=== PATIENT | female | born 1960 | race Caucasian/White ===

== ENCOUNTER → 2016-06-17 | Outpatient (CLI) | payer MEDICAID, OTHER ==
[2016-06-17 09:16] LABS: ALT 31 U/L (9-52); AST 20 U/L (14-36)
== END | disposition home or self-care (01) ==
LOC: LABWHC1 08:33
PROVIDERS: ATTEND Dermatology Dermatopathology
DX: L13.0 Dermatitis herpetiformis (principal); Z79.899 Other long term (current) drug therapy
CPT/HCPCS: 36415; 84450; 84460

== ENCOUNTER → 2016-07-22 | Outpatient (CLI) | payer MEDICAID, OTHER ==
[2016-07-22 09:23] LABS: ALT 25 U/L (9-52); AST 25 U/L (14-36)
== END | disposition home or self-care (01) ==
LOC: LABWHC1 07:53
PROVIDERS: ATTEND Dermatology Dermatopathology
DX: L13.0 Dermatitis herpetiformis (principal); Z79.899 Other long term (current) drug therapy
CPT/HCPCS: 36415; 84450; 84460

== ENCOUNTER → 2017-08-15 | Outpatient (CLI) | payer MEDICAID, OTHER ==
[2017-08-15 07:41] LABS: Basophils # (A) 0.1 k/uL (0-0.2); Basophils % (A) 1 %; Eosinophils # (A) 0.3 k/uL (0-0.7); Eosinophils % (A) 5 %; HCT 36.3 % (34.0-46.0); HGB 11.7 gm/dL (11.4-16.0); Lymphocytes # (A) 1.5 k/uL (1.0-4.8); Lymphocytes % (A) 25 %; MCH 28.8 pg (25.0-35.0); MCHC 32.2 g/dL (31.0-37.0); MCV 89.6 fL (80.0-100.0); Mean Platelet Volume 7.5; Monocytes # (A) 0.4 k/uL (0-1.0); Monocytes % (A) 6 %; Neutrophils # (A) 3.6 k/uL (1.3-7.7); Neutrophils % (A) 60 %; Platelet Count 301 k/uL (150-450); RBC 4.06 m/uL (3.80-5.40); RDW 14.3 % (11.5-15.5)
[2017-08-15 07:57] LABS: ALT 24 U/L (9-52); AST 19 U/L (14-36); Albumin 4.1 g/dL (3.5-5.0); Alkaline Phosphatase 77 U/L (38-126); Anion Gap 13 mmol/L; Blood Urea Nitrogen 15 mg/dL (7-17); Calcium 9.4 mg/dL (8.4-10.2); Carbon Dioxide 23 mmol/L (22-30); Chloride 107 mmol/L (98-107); Cholesterol 232 mg/dL (<200); Glucose 91 mg/dL (74-99); HDL Cholesterol 51 mg/dL (40-60); LDL Cholesterol,Calculated 164 mg/dL (0-99); Potassium 4.3 mmol/L (3.5-5.1); Sodium 143 mmol/L (137-145); Total Bilirubin 0.6 mg/dL (0.2-1.3); Total Protein 6.9 g/dL (6.3-8.2); Triglycerides 86 mg/dL (<150)
[2017-08-15 08:13] LABS: T4, Free (Free Thyroxine) 0.97 ng/dL (0.78-2.19)
== END | disposition home or self-care (01) ==
LOC: LABWHC1 06:59
PROVIDERS: ATTEND Internal Medicine
DX: Z01.419 Encounter for gynecological examination (general) (routine) without abnormal findings (principal); Z13.29 Encounter for screening for other suspected endocrine disorder; Z13.220 Encounter for screening for lipoid disorders; Z13.228 Encounter for screening for other metabolic disorders
CPT/HCPCS: 36415; 80053; 80061; 83050; 84439; 84443; 85025

== ENCOUNTER → 2017-10-31 | Outpatient (CLI) | payer MEDICAID, OTHER ==
--- NOTE | 2017-10-31 08:14 | XR ---
Lumbar spine HISTORY: Right hip numbness, sciatic leg pain 3 views of the lumbar spine Lumbar vertebral bodies show preserved height, alignment, bone mineralization mildly reduced. Surgica l clips present in the right upper quadrant. There is a gentle spinal curvature. Loss of disc height present at the intervertebral levels. Possible transitional vertebral body at the lumbosacral junctio n. Vacuum phenomenon present at what is believed to be L4-5. Sclerosis present in the posterior eleme nts compatible with facet arthropathy. IMPRESSION: Degenerative disc disease, osteopenia, facet arthropathy. MRI may be of benefit.
== END | disposition home or self-care (01) ==
LOC: RADXRMAIN 06:43
PROVIDERS: ATTEND Internal Medicine
DX: M51.36 Other intervertebral disc degeneration, lumbar region (principal); M85.88 Other specified disorders of bone density and structure, other site; M46.96 Unspecified inflammatory spondylopathy, lumbar region
CPT/HCPCS: 72100

== ENCOUNTER → 2017-11-21 | Outpatient (CLI) | payer MEDICAID, OTHER ==
--- NOTE | 2017-11-21 16:59 | P.STRESS ---
- Stress Test Note Stress Test Results/Findings: Exam Performed: stress test Exam Date: 11/21/17 Reason for Exam: palp / htn Height: 5 ft 5 in Weight: 77.564 kg Protocol: zia Stage: 2 Duration of Exercise: 5:00 Resting Heart Rate: 78 Resting Blood Pressure: 129/84 Maximum Achieved Heart Rate: 160 Maximum Achieved Blood Pressure: 178/64 85% PMHR: 137 100% PMHR: 161 METS: 7.0 Technologist Comment: Stress Test Results/Findings: Baseline heart rate 78 beats a minute, Baseline blood pressure 129/84 mmHg. Baseline telemetry ECG shows normal sinus rhythm and nonspecific ST-T abnormalities with a subtle T-wave inversion in the lateral precordial leads consistent with a history of hypertension Patient excisable Zia protocol for 5 minutes achieving a peak 100 160 beats a minute. Normal blood pressure response to exercise. There was no definite ECG evidence for ischemia no arrhythmias noted Impression Reduced exercise capacity, low workload achieved No ECG evidence for ischemia or arrhythmias
--- NOTE | 2017-11-21 17:03 | ECHOF ---
Referral Reason:I10 Hypertension MEASUREMENTS -------- HEIGHT: 165.1 cm WEIGHT: 77.6 kg BP: IVSd: 1.2 cm (0.6 - 1.1) LVIDd: 3.6 cm (3.9 - 5.3) LVPWd: 1.1 cm (0.6 - 1.1) IVSs: 1.5 cm LVIDs: 3.4 cm LVPWs: 0.9 cm LA Diam: 3.0 cm (2.7 - 3.8) LAESV Index (A-L): 29.92 ml/m Ao Diam: 2.8 cm (2.0 - 3.7) LA Diam: 2.8 cm (2.7 - 3.8) AV Cusp: 1.6 cm (1.5 - 2.6) EPSS: 1.0 cm MV E Quan: 0.64 m/s MV DecT: 202 ms MV A Quan: 0.69 m/s MV E/A Ratio: 0.92 RAP: 5.00 mmHg RVSP: 18.20 mmHg MV EF SLOPE: 83.64 mm/s (70 - 150) MV EXCURSION: 14.38 mm (> 18.000) FINDINGS -------- Sinus rhythm. This was a technically adequate study. The left ventricular size is normal. There is mild concentric left ventricular hypertrophy. Overa ll left ventricular systolic function is low-normal with, an EF between 50 - 55 %. The right ventricle is normal in size. The left atrial size is normal. Normal LA size by volume 22+/-6 ml/m2. The aortic valve is trileaflet, and appears structurally normal. No aortic stenosis or regurgitation. Mild mitral regurgitation is present. Mild tricuspid regurgitation present. There is no evidence of pulmonary hypertension. The right v entricular systolic pressure, as measured by Doppler, is 18.20mmHg. There is no pulmonic regurgitation present. The aortic root size is normal. There is no pericardial effusion. CONCLUSIONS -------- 1. The left ventricular size is normal. 2. There is mild concentric left ventricular hypertrophy. 3. Overall left ventricular systolic function is low-normal with, an EF between 50 - 55 %. 4. The right ventricle is normal in size. 5. The left atrial size is normal. 6. Normal LA size by volume 22+/-6 ml/m2. 7. The aortic valve is trileaflet, and appears structurally normal. No aortic stenosis or regurgitati on. 8. Mild mitral regurgitation is present. 9. Mild tricuspid regurgitation present. 10. There is no evidence of pulmonary hypertension. 11. The right ventricular systolic pressure, as measured by Doppler, is 18.20mmHg. 12. There is no pulmonic regurgitation present. 13. The aortic root size is normal. 14. There is no pericardial effusion. SECURITY INCIDENT RESPONSE SPECIALIST: Cassie Metz RDCS
== END | disposition home or self-care (01) ==
LOC: RADNMMAIN 10:34
PROVIDERS: ATTEND Internal Medicine
DX: I08.1 Rheumatic disorders of both mitral and tricuspid valves (principal); I11.9 Hypertensive heart disease without heart failure
CPT/HCPCS: 93017; 93306

== ENCOUNTER 2018-02-15 07:10 | Day surgery (SDC) | payer MEDICAID, OTHER ==
[2018-02-09 12:01] VITALS: BMI 27.6
[~2018-02-15 07:10] MED LIST: LACTATED RINGERS 1,000 ML IV SCH
[2018-02-15 07:54] VITALS: RESP 16; TEMP 97.8
[2018-02-15] MEDS ORDERED: LIDOCAINE 1% 20 ML VIAL (10MG/ML) FOR IV START INTRADERMA ONE (07:56)
[2018-02-15] MEDS ORDERED: fentaNYL (PF) 50 MCG/ML 2 ML AMP ONE (08:29)
[2018-02-15] MEDS ORDERED: PROPOFOL 10 MG/ML 20 ML VIAL IV ONE (08:29)
[2018-02-15] MEDS ORDERED: LIDOCAINE 1% INJ 10MG/ML (20 ML MDV) ONE (08:29)
--- NOTE | 2018-02-15 08:55 | P.PCN ---
Date of Procedure: 02/15/18 Procedure(s) Performed: Brief history: Patient is a pleasant 57-year-old white female, scheduled for an elective upper endoscopy as well as colonoscopy as a part of evaluation of abdominal pain and chronic diarrhea. She has history of celiac disease diagnosed 5 years ago. She also has prior history of colon polyps Procedure performed: Esophagogastroduodenoscopy with biopsy Colonoscopy with biopsy Preoperative diagnosis: History of celiac disease Abdominal pain chronic diarrhea/history of colon polyps Anesthesia: MAC Procedure: After informed consent was obtained from the patient was brought into the endoscopy unit and IV sedation was administered by anesthesia under continuous monitoring. Initially upper endoscopy was done. The Olympus GF 160 video endoscope was inserted inserted into the mouth and esophagus intubated without any difficulty and was gradually advanced into the stomach and duodenum and carefully examined. The bulb and second part of the duodenum appeared normal. Random biopsies were done from the duodenum to evaluate for celiac disease. The scope was then withdrawn into the stomach adequately insufflated with air and upon careful examination the antrum had patchy areas of erythema and Biopsies were done from this area. The body, cardia and fundus appeared normal. The scope was then withdrawn into the esophagus. The GE junction was located at 40 cm to the incisors. It appeared regular with no erythema erosions or ulcerations. Rest of the esophagus appeared normal. Patient tolerated the procedure well. At this time the patient continued to remain sedation. Initial digital rectal examination was normal. Olympus CF 160 video colonoscope was then inserted into the rectum and gradually advanced to the cecum without any difficulty. Careful examination was performed as the scope was gradually being withdrawn. The prep was excellent. The cecum, ascending colon, transverse colon, descending colon, sigmoid colon and rectum appeared normal. There was a 5 limited polyp noted in the descending colon that was removed by cold biopsy. Retroflexion was performed in the rectum and small internal hemorrhoids were noted. Patient tolerated the procedure well. Impression: 1. Upper endoscopy revealed mild gastritis but no evidence of esophagitis or peptic ulcer disease 2. Colonoscopy revealed 5 mm descending colon polyp status post removal by biopsy and small internal Recommendations: Findings of this examination were discussed with the patient as well as her family. She was advised to follow with the biopsy results. She can continue with a strict gluten-free diet. If the biopsy of the colon polyp shows adenoma she can have a repeat colonoscopy in 5 years.
[2018-02-15 09:17] VITALS: BP 139/77; PULSE 67
== END 2018-02-15 09:32 | disposition home or self-care (01) ==
LOC: ORWHC2ENDO 07:10
PROVIDERS: ATTEND Internal Medicine Gastroenterology
DX: D12.4 Benign neoplasm of descending colon (principal); K29.50 Unspecified chronic gastritis without bleeding; I10 Essential (primary) hypertension; K64.8 Other hemorrhoids; K52.9 Noninfective gastroenteritis and colitis, unspecified; Z86.010 Personal history of colon polyps; Z88.0 Allergy status to penicillin; Z88.6 Allergy status to analgesic agent; Z91.048 Other nonmedicinal substance allergy status
CPT/HCPCS: 88305; 45380; 43239; J2001; J3010; J2704

== ENCOUNTER → 2018-03-01 | Outpatient (CLI) | payer MEDICAID, OTHER ==
[2018-03-01 15:49] LABS: Folate, Serum 11.9 ng/mL
== END | disposition home or self-care (01) ==
LOC: LABWHC1 07:59
PROVIDERS: ATTEND Internal Medicine
DX: K90.0 Celiac disease (principal)
CPT/HCPCS: 36415; 82607; 82746; 83516; 84443

== ENCOUNTER → 2018-04-16 | Outpatient (CLI) | payer MEDICAID, OTHER ==
--- NOTE | 2018-04-18 13:29 | MM ---
Reason for exam: screening (asymptomatic). Last mammogram was performed 4 years and 3 months ago. History: Patient is postmenopausal and history of other cancer. Family history of breast cancer in aunt at age 64 and breast cancer in sister at age 56. Physical Findings: A clinical breast exam by your physician is recommended on an annual basis and results should be correlated with mammographic findings. MG 3D Screening Mammo W/Cad Bilateral CC and MLO view(s) were taken. Prior study comparison: January 02, 2014, bilateral MG screening mammo w CAD. January 03, 2008, bilateral diagnostic digital mammog. The breast tissue is heterogeneously dense. This may lower the sensitivity of mammography. No significant changes when compared with prior studies. ASSESSMENT: Benign, BI-RAD 2 RECOMMENDATION: Routine screening mammogram of both breasts in 1 year.
== END | disposition home or self-care (01) ==
LOC: RADMAMWWP 07:38
PROVIDERS: ATTEND Internal Medicine
DX: Z12.31 Encounter for screening mammogram for malignant neoplasm of breast (principal)
CPT/HCPCS: 77063; 77067

== ENCOUNTER → 2018-04-20 | Outpatient (CLI) | payer MEDICAID, OTHER ==
--- NOTE | 2018-04-20 16:29 | BD ---
EXAMINATION TYPE: Axial Bone Density DATE OF EXAM: 04/20/2018 COMPARISON: NONE CLINICAL HISTORY: 57 YR OLD FEMALE....ICD-10 CODE: K90.0 CELIAC DISEASE Height: 64 Weight: 175 FRAX RISK QUESTIONS: Family History (Parent hip fracture): NO HIP FXS History of Fracture in Adulthood: YES Secondary Osteoporosis: YES 3. Menopause before 45: HYST AT 40 4. Malnutrition: CELIAC Current Tobacco Use: YES RISK FACTORS HISTORY OF: HX OF BILAT ELBOW FRACTURES AN ADULT Family History of Osteoporosis: YES, SISTER, FATHER, MOTHER...NO FX HIPS Active: YES, WORKS Diet low in dairy products/other sources of calcium: YES Postmenopausal woman: UNKNOWN, HYST AT 40 YRS OLD MEDICATIONS: Additional Medications: BP MEDS, VIT D SUPPLEMENTS, REFLUX MEDS, DAPSONE, Additional History: CELIAC DISEASE, HYPERTENSION EXAM MEASUREMENTS: Bone mineral densitometry was performed using the [employer] System. Bone mineral density as measured about the Lumbar spine is: ----- L1-L4(G/cm2): 1.054 T Score Values are as follows: ----- L1: -0.8 ----- L2: -0.9 ----- L3: -1.1 ----- L4: -1.4 ----- L1-L4: -0.8 Bone mineral density BASELINE STUDY Bone mineral density about the R hip (g/cm2): 0.875 Bone mineral density about the L hip (g/cm2): 0.860 T Score values are as follows: -----R Neck: -1.3 -----L Neck: -1.9 -----R Total: -1.1 -----L Total: -1.2 Bone mineral density BASELINE STUDY FRAX%s: THERE IS A 15.6% CHANCE FOR A MAJOR OSTEOPOROTIC FX AND A 3.1% FOR HIP FX....PROBABILITY O F FX IN 10 YRS TIME IMPRESSION: Osteopenia (T Score between -2.5 and -1). There is slightly increased risk of fracture and the patient may be considered for treatment. Re-Screen 2-5 years. NOTE: T-SCORE=SD OF THE YOUNG ADULT MEAN.
== END ==
LOC: RADBDWWP 11:31
PROVIDERS: ATTEND Internal Medicine
DX: M85.80 Other specified disorders of bone density and structure, unspecified site (principal)
CPT/HCPCS: 77080

== ENCOUNTER → 2018-11-15 | Outpatient (CLI) | payer MEDICAID, OTHER ==
[2018-11-15 08:27] LABS: HCT 38.3 % (34.0-46.0); HGB 12.2 gm/dL (11.4-16.0); MCH 28.8 pg (25.0-35.0); MCHC 31.8 g/dL (31.0-37.0); MCV 90.6 fL (80.0-100.0); Mean Platelet Volume 7.1; Platelet Count 308 k/uL (150-450); RBC 4.22 m/uL (3.80-5.40); RDW 14.3 % (11.5-15.5); WBC 6.5 k/uL (3.8-10.6)
[2018-11-15 11:47] LABS: African American GFR (CKD) 71.4 (60.0-200.0); Albumin/Globulin Ratio 1.82 (1.60-3.17); Anion Gap 7.9 mmol/L (4.00-12.00); Carbon Dioxide 22.1 mmol/L (21.6-31.8); Globulin 2.2 g/dL (1.6-3.3); LDL Cholesterol,Calculated 131.6 mg/dL (0.0-131.0); Potassium 4.4 mmol/L (3.5-5.5); Total Bilirubin 0.5 mg/dL (0.3-1.2); Total Protein 6.2 g/dL (6.2-8.2); VLDL Calculation 28.4 mg/dL (5.00-40.00)
[2018-11-15 14:13] LABS: Basophils # (M) 0.07 k/uL (0-0.2); Eosinophils # (M) 0.13 k/uL (0-0.7); Lymphocytes # (M) 2.15 k/uL (1.0-4.8); Monocytes # (M) 0.26 k/uL (0-1.0); Neutrophils % (M) 60 %; Nucleated Red Blood Cells 0 /100 WBC (0-0); Total Cells Counted 100
== END | disposition home or self-care (01) ==
LOC: LABWHC1 06:59
PROVIDERS: ATTEND Internal Medicine
DX: Z00.01 Encounter for general adult medical examination with abnormal findings (principal); I10 Essential (primary) hypertension; D74.9 Methemoglobinemia, unspecified; L13.0 Dermatitis herpetiformis
CPT/HCPCS: 36415; 80053; 80061; 85027

== ENCOUNTER → 2018-11-16 | Outpatient (CLI) | payer MEDICAID, OTHER ==
--- NOTE | 2018-11-17 12:18 | US ---
EXAMINATION TYPE: US pelvis complete transvag DATE OF EXAM: 11/16/2018 COMPARISON: NONE CLINICAL HISTORY: R10.2 Pelvic Pain. Pelvic pain for 2 months. Partial hysterectomy 20 years ago TECHNIQUE: Transvaginal (TV) and Transabdominal (TA) . Transabdominal sonographic images of the pel vis were acquired. Transvaginal sonographic images were medically necessary to better assess the fol lowing anatomy: ovaries Date of LMP: unknown EXAM MEASUREMENTS: Uterus: Surgically absent Endometrial Stripe: Surgically absent Right Ovary: unable to visualize Left Ovary: 2.4 x 1.3 x 1.3 cm 1. Uterus: Surgically absent, vaginal cuff = 0.6cm 2. Endometrium: Surgically absent 3. Right Ovary: Obscured by overlying bowel gas 4. Left Ovary: appears wnl as visualized 5. Bilateral Adnexa: wnl Urinary bladder is unremarkable. Posterior wall is normal. IMPRESSION: 1. Unremarkable pelvic ultrasound as visualized. Postsurgical changes are evident.
== END | disposition home or self-care (01) ==
LOC: RADUSWWP 17:49
PROVIDERS: ATTEND Internal Medicine
DX: R10.2 Pelvic and perineal pain (principal); Z98.890 Other specified postprocedural states
CPT/HCPCS: 76830; 76856

== ENCOUNTER → 2019-01-10 | Outpatient (CLI) | payer MEDICAID, OTHER ==
[2019-01-10 07:37] LABS: Basophils # (A) 0.1 k/uL (0-0.2); Basophils % (A) 1 %; Eosinophils # (A) 0.3 k/uL (0-0.7); Eosinophils % (A) 5 %; HCT 35.5 % (34.0-46.0); HGB 11.5 gm/dL (11.4-16.0); Lymphocytes # (A) 1.7 k/uL (1.0-4.8); Lymphocytes % (A) 31 %; MCH 29.1 pg (25.0-35.0); MCHC 32.5 g/dL (31.0-37.0); MCV 89.5 fL (80.0-100.0); Mean Platelet Volume 6.9; Monocytes # (A) 0.4 k/uL (0-1.0); Monocytes % (A) 7 %; Neutrophils % (A) 53 %; Platelet Count 268 k/uL (150-450); RBC 3.97 m/uL (3.80-5.40); RDW 14.6 % (11.5-15.5); WBC 5.5 k/uL (3.8-10.6)
[2019-01-10 12:00] LABS: ALT 27 U/L (8-44); AST 29 U/L (13-35)
== END | disposition home or self-care (01) ==
LOC: LABWHC1 07:05
PROVIDERS: ATTEND Dermatology Dermatopathology
DX: D74.9 Methemoglobinemia, unspecified (principal); L13.0 Dermatitis herpetiformis; Z79.899 Other long term (current) drug therapy
CPT/HCPCS: 36415; 83050; 84450; 84460; 85025

== ENCOUNTER → 2019-03-12 | Outpatient (CLI) | payer MEDICAID, OTHER ==
[2019-03-12 08:27] LABS: Basophils # (A) 0.1 k/uL (0-0.2); Basophils % (A) 1 %; Eosinophils # (A) 0.2 k/uL (0-0.7); Eosinophils % (A) 3 %; HCT 36.2 % (34.0-46.0); HGB 11.4 gm/dL (11.4-16.0); Hypochromasia Slight; Lymphocytes # (A) 1.6 k/uL (1.0-4.8); Lymphocytes % (A) 25 %; MCH 29.1 pg (25.0-35.0); MCHC 31.4 g/dL (31.0-37.0); MCV 92.6 fL (80.0-100.0); Mean Platelet Volume 6.9; Monocytes # (A) 0.4 k/uL (0-1.0); Monocytes % (A) 6 %; Neutrophils % (A) 62 %; Platelet Count 274 k/uL (150-450); RBC 3.91 m/uL (3.80-5.40); RDW 14.7 % (11.5-15.5); WBC 6.4 k/uL (3.8-10.6)
[2019-03-12 11:44] LABS: ALT 14 U/L (8-44); AST 19 U/L (13-35)
[2019-03-12 11:53] LABS: Estradiol <11.8 pg/mL; Follicle Stimulating Hormone 125.2 mIU/mL
== END | disposition home or self-care (01) ==
LOC: LABWHC1 07:04
PROVIDERS: ATTEND Dermatology Dermatopathology
DX: D74.9 Methemoglobinemia, unspecified (principal); L13.0 Dermatitis herpetiformis; N95.1 Menopausal and female climacteric states; Z79.899 Other long term (current) drug therapy
CPT/HCPCS: 36415; 82670; 83001; 83050; 84450; 84460; 85025

== ENCOUNTER → 2019-04-01 | Outpatient (CLI) | payer MEDICAID, OTHER | END | disposition home or self-care (01) | LOC: LABWHC1 07:04 | PROVIDERS: ATTEND Physician Assistant | DX: L13.0 Dermatitis herpetiformis (principal) | CPT/HCPCS: 83050 ==

== ENCOUNTER → 2019-05-27 | Outpatient (CLI) | payer MEDICAID, OTHER ==
[2019-05-27 07:40] LABS: Basophils # (A) 0.1 k/uL (0-0.2); Basophils % (A) 2 %; Eosinophils # (A) 0.2 k/uL (0-0.7); Eosinophils % (A) 4 %; HCT 38.4 % (34.0-46.0); HGB 11.7 gm/dL (11.4-16.0); Hypochromasia Slight; Lymphocytes # (A) 1.7 k/uL (1.0-4.8); Lymphocytes % (A) 26 %; MCH 28.2 pg (25.0-35.0); MCHC 30.6 g/dL (31.0-37.0); MCV 92.2 fL (80.0-100.0); Mean Platelet Volume 7.5; Monocytes # (A) 0.4 k/uL (0-1.0); Monocytes % (A) 5 %; Neutrophils # (A) 4.1 k/uL (1.3-7.7); Neutrophils % (A) 61 %; Platelet Count 296 k/uL (150-450); RBC 4.16 m/uL (3.80-5.40); RDW 14.4 % (11.5-15.5); WBC 6.7 k/uL (3.8-10.6)
[2019-05-27 11:27] LABS: ALT 17 U/L (8-44); AST 22 U/L (13-35)
== END | disposition home or self-care (01) ==
LOC: LABWHC1 07:10
PROVIDERS: ATTEND Dermatology Dermatopathology
DX: L13.0 Dermatitis herpetiformis (principal); D74.9 Methemoglobinemia, unspecified; Z79.899 Other long term (current) drug therapy
CPT/HCPCS: 36415; 83050; 84450; 84460; 85025

== ENCOUNTER → 2019-11-13 | Outpatient (CLI) | payer MEDICAID, OTHER ==
[2019-11-13 07:42] LABS: Basophils # (A) 0.1 k/uL (0-0.2); Basophils % (A) 1 %; Eosinophils # (A) 0.3 k/uL (0-0.7); Eosinophils % (A) 5 %; HCT 36.4 % (34.0-46.0); HGB 11.9 gm/dL (11.4-16.0); Lymphocytes # (A) 1.5 k/uL (1.0-4.8); Lymphocytes % (A) 27 %; MCH 29.2 pg (25.0-35.0); MCHC 32.8 g/dL (31.0-37.0); Mean Platelet Volume 7.8; Monocytes # (A) 0.4 k/uL (0-1.0); Monocytes % (A) 7 %; Neutrophils # (A) 3.2 k/uL (1.3-7.7); Neutrophils % (A) 58 %; Platelet Count 261 k/uL (150-450); RBC 4.09 m/uL (3.80-5.40); RDW 13.9 % (11.5-15.5); WBC 5.5 k/uL (3.8-10.6)
[2019-11-13 11:48] LABS: ALT 20 U/L (8-44); AST 26 U/L (13-35)
== END | disposition home or self-care (01) ==
LOC: LABWHC1 07:10
PROVIDERS: ATTEND Dermatology Dermatopathology
DX: D74.9 Methemoglobinemia, unspecified (principal); L13.0 Dermatitis herpetiformis; Z79.899 Other long term (current) drug therapy
CPT/HCPCS: 36415; 83050; 84450; 84460; 85025

== ENCOUNTER → 2020-03-05 | Outpatient (CLI) | payer MEDICAID ==
[2020-03-05 10:16] LABS: Basophils # (A) 0.1 k/uL (0-0.2); Basophils % (A) 2 %; Eosinophils # (A) 0.2 k/uL (0-0.7); Eosinophils % (A) 4 %; HCT 35.8 % (34.0-46.0); HGB 11.1 gm/dL (11.4-16.0); Hypochromasia Slight; Lymphocytes # (A) 1.9 k/uL (1.0-4.8); Lymphocytes % (A) 33 %; MCH 29.5 pg (25.0-35.0); MCHC 31.1 g/dL (31.0-37.0); MCV 95.1 fL (80.0-100.0); Mean Platelet Volume 7.8; Monocytes # (A) 0.4 k/uL (0-1.0); Monocytes % (A) 7 %; Neutrophils % (A) 53 %; Platelet Count 257 k/uL (150-450); RBC 3.77 m/uL (3.80-5.40); RDW 13.4 % (11.5-15.5); WBC 5.6 k/uL (3.8-10.6)
[2020-03-05 15:22] LABS: ALT 17 U/L (8-44); AST 21 U/L (13-35)
== END | disposition home or self-care (01) ==
LOC: LABWHC1 08:59
PROVIDERS: ATTEND Dermatology Dermatopathology
DX: L13.0 Dermatitis herpetiformis (principal); Z79.899 Other long term (current) drug therapy
CPT/HCPCS: 36415; 83050; 84450; 84460; 85025

== ENCOUNTER → 2020-07-14 | Outpatient (CLI) | payer MEDICAID ==
[2020-07-14 10:21] LABS: Basophils % (A) 1.7 %; Eosinophils # (A) 0.21 X 10*3/uL (0.04-0.35); Eosinophils % (A) 3.5 %; HGB 10.8 g/dL (12.0-15.0); Lymphocytes # (A) 1.75 X 10*3/uL (0.90-5.00); Lymphocytes % (A) 28.9 %; MCH 28.3 pg (27.0-32.0); MCHC 31.8 g/dL (32.0-37.0); Monocytes # (A) 0.54 X 10*3/uL (0.20-1.00); Monocytes % (A) 8.9 %; Neutrophils # (A) 3.44 X 10*3/uL (1.80-7.70); Neutrophils % (A) 56.8 %; Platelet Count 262 X 10*3/uL (140-440); RBC 3.82 X 10*6/uL (4.10-5.20); RDW 14.9 % (11.5-14.5); WBC 6.05 X 10*3/uL (4.50-10.00)
[2020-07-14 11:09] LABS: ALT 20 U/L (8-44); AST 26 U/L (13-35)
== END | disposition home or self-care (01) ==
LOC: LABWHC1 07:01
PROVIDERS: ATTEND Dermatology Dermatopathology
DX: L13.0 Dermatitis herpetiformis (principal); Z79.899 Other long term (current) drug therapy
CPT/HCPCS: 36415; 83050; 84450; 84460; 85025

== ENCOUNTER 2020-07-31 14:14 | Emergency (ER) | payer MEDICAID ==
[2020-07-31 14:26] VITALS: TEMP 98.2
[2020-07-31] MEDS ORDERED: SODIUM CHLORIDE 0.9% 2,000 ML IV STA (14:48)
--- NOTE | 2020-07-31 14:59 | ED ---
General Adult HPI - General Chief complaint: Weakness Stated complaint: Weakness/Dehydration Time Seen by Provider: 07/31/20 14:35 Source: patient Mode of arrival: ambulatory Limitations: no limitations - History of Present Illness Initial comments: 59 year-old female patient presents to the emergency department today for evaluation of weakness and dehydration. Patient states that she has been having diarrhea for the last 3-4 weeks. States she has seen her physician and has had stool studies and labs which have not found a cause. She has history of celiac disease. States that she is having 2-3 episodes of watery diarrhea per day. States it is dark in color, but denies any dex blood. Reports abdominal pain in the upper abdomen. Denies nausea or vomiting but reports severe cramping in her upper abdomen whenever she tries to eat or drink. Has been having chills, denies any known fever. Denies any new medications, antibiotic use, or recent travel. States she has received first and second dose of COVID vaccine. Has lost 20lbs in the last 4 weeks without trying. Reports no urine output today. States over the last couple of days she was feeling a "quivering" sensation in her chest. Patient denies any recent rash, cough, shortness of breath, chest pain, back pain, numbness, tingling, dizziness, weakness, hematuria, dysuria, urinary urgency, urinary frequency, headache, visual changes, or any other complaints. - Related Data Home Medications Medication Instructions Recorded Confirmed Cimetidine [Tagamet] 400 mg PO Q8H 02/09/18 07/31/20 Ergocalciferol (Vitamin D2) 50,000 unit PO Q30D 02/09/18 07/31/20 [Vitamin D2] ALPRAZolam [Xanax] 0.25 mg PO BID PRN 07/31/20 07/31/20 Atorvastatin -Unknown Strength 1 tab PO HS 07/31/20 07/31/20 Dapsone 75 mg PO DAILY 07/31/20 07/31/20 Magnesium Oxide 400 mg PO DAILY 07/31/20 07/31/20 hydrOXYzine HCL [Atarax] 25 mg PO QID 07/31/20 07/31/20 Previous Rx's Medication Instructions Recorded Dicyclomine [Bentyl] 20 mg PO QID #20 tablet 07/31/20 Ondansetron [Zofran ODT] 4 mg PO Q8HR PRN #20 tab 07/31/20 Allergies Allergy/AdvReac Type Severity Reaction Status Date / Time NSAIDS (Non-Steroidal Allergy Rash/Hives Verified 07/31/20 15:49 Anti-Inflamma oxaprozin [From Daypro] Allergy Rash/Hives Verified 07/31/20 15:49 Penicillins Allergy Rash/Hives Verified 07/31/20 15:49 adhesive AdvReac red & itchy Verified 07/31/20 15:49 Review of Systems ROS Statement: Those systems with pertinent positive or pertinent negative responses have been documented in the HPI. ROS Other: All systems not noted in ROS Statement are negative. Past Medical History Past Medical History: Cancer, Chest Pain / Angina, Hypertension Additional Past Medical History / Comment(s): celiac disease, recent chest discomfort, echo & stress test wnl per pt, put on BP medication @that time-no further problems, hx. basal cell skin cancer, loose mucousy stools recently alternating w/constipation History of Any Multi-Drug Resistant Organisms: None Reported Past Surgical History: Cholecystectomy, Hysterectomy Additional Past Surgical History / Comment(s): D&C x2, colonoscopies & EGD's, jaw surg-has prosthesis right lower jaw joint-can only open mouth 2 finger widths Past Anesthesia/Blood Transfusion Reactions: Motion Sickness, Postoperative Nausea & Vomiting (PONV) Past Psychological History: No Psychological Hx Reported Smoking Status: Former smoker Past Alcohol Use History: None Reported Past Drug Use History: None Reported - Past Family History Mother Family Medical History: Cancer General Exam Limitations: no limitations General appearance: alert, in no apparent distress, other (This is a well- developed, well-nourished adult female patient in no acute distress. Vital signs upon presentation are temperature 98.2F, pulse 100) Eye exam: Present: normal appearance, PERRL, EOMI. Absent: scleral icterus, conjunctival injection, periorbital swelling ENT exam: Present: normal exam, normal oropharynx, mucous membranes moist Respiratory exam: Present: normal lung sounds bilaterally. Absent: respiratory distress, wheezes, rales, rhonchi, stridor Cardiovascular Exam: Present: regular rate, normal rhythm, normal heart sounds. Absent: systolic murmur, diastolic murmur, rubs, gallop, clicks GI/Abdominal exam: Present: soft, tenderness (Left lower, right lower quadrant. Midepigastric.), normal bowel sounds. Absent: distended, guarding, rebound, rigid Neurological exam: Present: alert, oriented X3, CN II-XII intact Psychiatric exam: Present: normal affect, normal mood Skin exam: Present: warm, dry, intact, normal color. Absent: rash Course Vital Signs 07/31/20 07/31/20 07/31/20 14:22 15:43 16:23 Temperature 98.2 F Pulse Rate 100 76 78 Respiratory 16 18 18 Rate Blood Pressure 134/90 110/72 133/78 O2 Sat by Pulse 95 95 97 Oximetry EKG Findings - EKG Comments: EKG Findings:: EKG obtained at 1557 shows normal sinus rhythm with a ventricular rate of 72, WV interval 156, QRS duration 92, QT 424, QTC 464. No evidence of ST elevation or depression. Medical Decision Making - Medical Decision Making 59-year-old female patient presented to the emergency department today reporting 3-4 weeks of diarrhea. Patient states she feels weak and dehydrated. Physical examination is unremarkable. She has some tenderness in the midepigastric region. Labs reviewed and are unremarkable. I did review stool studies from Dr. Whittaker from 07/30/2020 were negative. Occult blood was negative. CT abdomen and pelvis is negative. Patient was unable to provide a stool sample for C. diff here. We did give IV fluids. She'll be discharged with a prescription to return with stool sample. She is given a prescription for Zofran and Bentyl. She is instructed to follow-up with her primary care physician and GI specialist as soon as possible for further evaluation. Return parameters were discussed in detail. She verbalizes understanding and agrees with this plan. - Lab Data Result diagrams: 07/31/20 15:28 07/31/20 15:28 Lab Results 07/31/20 07/31/20 07/31/20 Range/Units 15:28 15:28 15:28 WBC 8.6 (3.8-10.6) k/uL RBC 4.14 (3.80-5.40) m/uL Hgb 12.3 (11.4-16.0) gm/dL Hct 35.7 (34.0-46.0) % MCV 86.1 (80.0-100.0) fL MCH 29.8 (25.0-35.0) pg MCHC 34.6 (31.0-37.0) g/dL RDW 14.6 (11.5-15.5) % Plt Count 311 (150-450) k/uL MPV 8.0 Neutrophils % 63 % Lymphocytes % 24 % Monocytes % 8 % Eosinophils % 2 % Basophils % 1 % Neutrophils # 5.4 (1.3-7.7) k/uL Lymphocytes # 2.1 (1.0-4.8) k/uL Monocytes # 0.7 (0-1.0) k/uL Eosinophils # 0.2 (0-0.7) k/uL Basophils # 0.1 (0-0.2) k/uL Sodium 138 (137-145) mmol/L Potassium 3.8 (3.5-5.1) mmol/L Chloride 106 (98-107) mmol/L Carbon Dioxide 18 L (22-30) mmol/L Anion Gap 14 mmol/L BUN 16 (7-17) mg/dL Creatinine 0.69 (0.52-1.04) mg/dL Est GFR (CKD-EPI)AfAm >90 (>60 ml/min/1.73 sqM) Est GFR (CKD-EPI)NonAf >90 (>60 ml/min/1.73 sqM) Glucose 84 (74-99) mg/dL Calcium 9.1 (8.4-10.2) mg/dL Magnesium 2.1 (1.6-2.3) mg/dL Total Bilirubin 1.0 (0.2-1.3) mg/dL AST 26 (14-36) U/L ALT 24 (4-34) U/L Alkaline Phosphatase 81 (38-126) U/L Total Protein 7.1 (6.3-8.2) g/dL Albumin 4.3 (3.5-5.0) g/dL Lipase 86 (23-300) U/L TSH 1.560 (0.465-4.680) mIU/L Coronavirus (PCR) Not Detected (Not Detectd) Disposition Clinical Impression: Diarrhea, Anorexia Disposition: HOME SELF-CARE Condition: Good Instructions (If sedation given, give patient instructions): Acute Diarrhea (ED), Chronic Diarrhea (ED) Additional Instructions: Take medications as directed. Increase fluids. Return with stool sample for testing. Follow-up with the GI specialist as soon as possible. Follow-up through primary care physician for recheck in 1-2 days. Return to the emergency department for any new, worsening, or concerning symptoms. Prescriptions: Dicyclomine [Bentyl] 20 mg PO QID #20 tablet Ondansetron [Zofran ODT] 4 mg PO Q8HR PRN #20 tab PRN Reason: Nausea Is patient prescribed a controlled substance at d/c from ED?: No Referrals: Jennifer Whittaker MD [Primary Care Provider] - 1-2 days Jayy Babcock MD [STAFF PHYSICIAN] - 1-2 days Time of Disposition: 16:53
[2020-07-31] MEDS ORDERED: LORazepam 2 MG/ML INJ IV STA (15:33)
[2020-07-31 15:37] LABS: Basophils # (A) 0.1 k/uL (0-0.2); Basophils % (A) 1 %; Eosinophils # (A) 0.2 k/uL (0-0.7); Eosinophils % (A) 2 %; HCT 35.7 % (34.0-46.0); HGB 12.3 gm/dL (11.4-16.0); Lymphocytes # (A) 2.1 k/uL (1.0-4.8); Lymphocytes % (A) 24 %; MCH 29.8 pg (25.0-35.0); MCHC 34.6 g/dL (31.0-37.0); MCV 86.1 fL (80.0-100.0); Monocytes # (A) 0.7 k/uL (0-1.0); Monocytes % (A) 8 %; Neutrophils # (A) 5.4 k/uL (1.3-7.7); Neutrophils % (A) 63 %; Platelet Count 311 k/uL (150-450); RBC 4.14 m/uL (3.80-5.40); RDW 14.6 % (11.5-15.5); WBC 8.6 k/uL (3.8-10.6)
[2020-07-31 15:44] VITALS: RESP 18
[2020-07-31 15:48] LABS: ALT 24 U/L (4-34); AST 26 U/L (14-36); African American GFR (CKD) >90 (>60 ml/min/1.73 sqM); Albumin 4.3 g/dL (3.5-5.0); Alkaline Phosphatase 81 U/L (38-126); Anion Gap 14 mmol/L; Blood Urea Nitrogen 16 mg/dL (7-17); Calcium 9.1 mg/dL (8.4-10.2); Carbon Dioxide 18 mmol/L (22-30); Chloride 106 mmol/L (98-107); Glucose 84 mg/dL (74-99); Lipase 86 U/L (23-300); Magnesium 2.1 mg/dL (1.6-2.3); Non-African American GFR(CKD) >90 (>60 ml/min/1.73 sqM); Potassium 3.8 mmol/L (3.5-5.1); Sodium 138 mmol/L (137-145); Total Protein 7.1 g/dL (6.3-8.2)
[2020-07-31 16:23] VITALS: BP 133/78; PULSE 78
--- NOTE | 2020-07-31 16:27 | CT ---
Immediately EXAMINATION TYPE: CT abdomen pelvis w con DATE OF EXAM: 07/31/2020 COMPARISON: None HISTORY: Diarrhea x 4 weeks, abdominal tenderness, 20lb weight loss. CT DLP: 989.1 mGycm CONTRAST: CT scan of the abdomen and pelvis is performed without Oral Contrast and with IV Contrast, patient in jected with 100 mL of Isovue 300. FINDINGS: LUNG BASES-: No visible nodule. No infiltrate. LIVER/GB: No calcified gallstones. No space occupying hepatic lesion. Biliary tree is of normal ca liber. PANCREAS: No inflammation. No distinct mass. SPLEEN: No splenic enlargement. No lesion seen. ADRENALS: No nodule. No thickening. KIDNEYS/BLADDER: No hydronephrosis. No nephrolithiasis. No distinct renal mass. Urinary bladder g rossly unremarkable. BOWEL: Normal appendix. Normal bowel caliber. No inflammation. GENITAL ORGANS: No gross abnormality. LYMPH NODES: No greater than 1cm abdominal or pelvic lymph nodes are appreciated. AORTA: No significant abnormality. OSSEOUS STRUCTURES: No significant abnormality is seen. OTHER: No significant additional abnormality is seen. IMPRESSION: 1. No acute process identified to account for the patient's symptoms.
== END 2020-07-31 17:35 | disposition home or self-care (01) ==
LOC: EC 14:14
DX: R19.7 Diarrhea, unspecified (principal); R63.0 Anorexia; E86.0 Dehydration; R10.13 Epigastric pain; R68.83 Chills (without fever); I10 Essential (primary) hypertension; Z20.822 Contact with and (suspected) exposure to COVID-19; Z87.891 Personal history of nicotine dependence; Z79.899 Other long term (current) drug therapy
CPT/HCPCS: 74177; 80053; 83690; 83735; 84443; 85025; 87324; 87635; 93005; 96361; 96374; 99285

== ENCOUNTER 2020-08-12 08:03 | Day surgery (SDC) | payer MEDICAID ==
[2020-08-10 14:15] VITALS: BMI 26.5
[~2020-08-12 08:03] MED LIST changes: +LIDOCAINE 1% (10MG/ML) FOR IV START INTRADERMA PRN
[2020-08-12 08:42] VITALS: PULSE 82; TEMP 98.1
[2020-08-12] MEDS ORDERED: LACTATED RINGERS 1,000 ML IV ONE (08:55)
[2020-08-12] MEDS ORDERED: ONDANSETRON 4 MG/2 ML VIAL ONE (08:58)
[2020-08-12] MEDS ORDERED: LIDOCAINE 1% INJ 10MG/ML (20 ML MDV) ONE (08:58)
[2020-08-12] MEDS ORDERED: PROPOFOL 10 MG/ML 20 ML VIAL IV ONE (08:58)
--- NOTE | 2020-08-12 09:09 | P.PCN ---
Date of Procedure: 08/12/20 Procedure(s) Performed: BRIEF HISTORY: Patient is a 59-year-old, pleasant, female with long-standing history of celiac disease is scheduled for an upper endoscopy as a part of evaluation of severe epigastric pain for the last few weeks duration. She also has progressive weight loss of 22 pounds in the last 6 weeks.. PROCEDURE PERFORMED: Esophagogastroduodenoscopy with biopsy. PREOPERATIVE DIAGNOSIS: Epigastric pain. IV sedation per anesthesia. PROCEDURE: After informed consent was obtained, the patient was brought into the endoscopy unit. IV sedation was administered by Anesthesia under continuous monitoring. Initially the Olympus GIF-140 video endoscope was inserted into the mouth. Esophagus intubated without any difficulty. It was gradually advanced into the stomach and duodenum and carefully examined. The bulb and the second part of the duodenum appeared normal. Biopsies were done from the duodenum. The scope at this time was withdrawn to the stomach, adequately insufflated with air, and upon careful examination, mucosa of the antrum, had patchy areas of erythema which was biopsied. The body, cardia and the fundus appeared normal. The scope was then withdrawn into the esophagus. The GE junction was located at 39 cm from the incisors. The esophagus appeared normal. There were no erosions or ulcerations seen, biopsies were done from the distal esophagus and the patient tolerated the procedure well. IMPRESSION: 1. Mild antral gastritis. 2. No evidence of esophagitis or peptic ulcer disease. 3. Normal-appearing duodenum status post multiple biopsies RECOMMENDATIONS: The findings of this examination were discussed with the patient as well as a family. She was advised to follow with the biopsy results. She will continue with omeprazole 20 mg daily and she'll be seen in office in 3-4 weeks..
[2020-08-12 09:36] VITALS: BP 131/75; RESP 20
== END 2020-08-12 09:50 | disposition home or self-care (01) ==
LOC: ORWHC2ENDO 08:03
PROVIDERS: ATTEND Internal Medicine Gastroenterology
DX: K29.50 Unspecified chronic gastritis without bleeding (principal); D72.820 Lymphocytosis (symptomatic); K21.9 Gastro-esophageal reflux disease without esophagitis; K90.0 Celiac disease; I10 Essential (primary) hypertension; E78.5 Hyperlipidemia, unspecified; Z90.49 Acquired absence of other specified parts of digestive tract; Z90.710 Acquired absence of both cervix and uterus; Z98.890 Other specified postprocedural states; Z88.6 Allergy status to analgesic agent; Z79.899 Other long term (current) drug therapy; Z88.0 Allergy status to penicillin; Z91.09 Other allergy status, other than to drugs and biological substances
CPT/HCPCS: 88305; 43239; J2405; J2001; J2704

== ENCOUNTER → 2020-09-25 | Outpatient (CLI) | payer MEDICAID ==
--- NOTE | 2020-09-25 07:56 | MR ---
EXAMINATION TYPE: MR pancreas wo/w con DATE OF EXAM: 09/25/2020 COMPARISON: CT abdomen and pelvis July 31, 2020 HISTORY: Stomach pain/ Abnormal weight loss; history of celiac disease. CONTRAST: Standard multiplanar, multisequence MRI departmental protocol utilizing 7ml mL intravenous Gadavist g adolinium contrast. Imaging of the abdomen focusing on the pancreas. Diffusion-weighted imaging is p erformed. FINDINGS: Pancreas: Pancreas is redemonstrated overall normal in size, there is no concerning solid or cystic m ass identified. No surrounding fluid or fat stranding seen. Other: Lung bases are grossly clear. Gallbladder is surgically absent. Occasional scattered small thi n-walled cysts throughout the liver seen best on coronal T2-weighted images. The liver, spleen, both adrenal glands otherwise appear within normal limits. There is no concerning renal mass or hydronephr osis. No suspicious small or large bowel dilatation is seen. Poorly distended left colon redemonstrat ed with mild wall thickening. No intra-abdominal ascites. No greater than 1 cm abdominal adenopathy. Disc space narrowing and spurring of lumbosacral junction redemonstrated. No AAA. IMPRESSION: Possible mild left-sided uncomplicated colitis versus product of poor distention otherwis e Unremarkable study.
== END | disposition home or self-care (01) ==
LOC: RADMRIMAIN 06:33
PROVIDERS: ATTEND Internal Medicine Gastroenterology
DX: R10.9 Unspecified abdominal pain (principal); K90.0 Celiac disease
CPT/HCPCS: 74183; A9585

== ENCOUNTER → 2020-11-18 | Outpatient (CLI) | payer MEDICAID ==
[2020-11-18 07:56] LABS: Basophils # (A) 0.1 k/uL (0-0.2); Basophils % (A) 1 %; Eosinophils # (A) 0.2 k/uL (0-0.7); Eosinophils % (A) 3 %; HCT 34.2 % (34.0-46.0); HGB 11.1 gm/dL (11.4-16.0); Lymphocytes # (A) 1.7 k/uL (1.0-4.8); Lymphocytes % (A) 25 %; MCH 28.3 pg (25.0-35.0); MCHC 32.6 g/dL (31.0-37.0); MCV 86.9 fL (80.0-100.0); Monocytes # (A) 0.5 k/uL (0-1.0); Monocytes % (A) 7 %; Neutrophils # (A) 4.2 k/uL (1.3-7.7); Neutrophils % (A) 61 %; Platelet Count 319 k/uL (150-450); RBC 3.94 m/uL (3.80-5.40); RDW 13.8 % (11.5-15.5); WBC 6.8 k/uL (3.8-10.6)
[2020-11-18 08:10] LABS: ALT 11 U/L (4-34); AST 19 U/L (14-36); African American GFR (CKD) 89 (>60 ml/min/1.73 sqM); Albumin 4.3 g/dL (3.5-5.0); Albumin/Globulin Ratio 1.6; Alkaline Phosphatase 77 U/L (38-126); Anion Gap 10 mmol/L; Blood Urea Nitrogen 13 mg/dL (7-17); Calcium 9.5 mg/dL (8.4-10.2); Carbon Dioxide 22 mmol/L (22-30); Chloride 110 mmol/L (98-107); Globulin 2.7 g/dL; Glucose 103 mg/dL (74-99); Non-African American GFR(CKD) 78 (>60 ml/min/1.73 sqM); Potassium 4.2 mmol/L (3.5-5.1); Sodium 142 mmol/L (137-145); Total Bilirubin 0.8 mg/dL (0.2-1.3)
--- NOTE | 2020-11-18 08:18 | XR ---
EXAMINATION TYPE: XR chest 2V DATE OF EXAM: 11/18/2020 COMPARISON: Chest x-ray 08/13/2015 HISTORY: R05, cough TECHNIQUE: Frontal and lateral views of the chest are obtained. FINDINGS: There is no focal air space opacity, pleural effusion, or pneumothorax seen. The cardiac silhouette size is within normal limits. The aorta is dense. Surgical clips are present in the right upper quadrant. There is some bronchial wall thickening. The osseous structures are intact. IMPRESSION: Correlate for bronchitis, reactive airways disease, follow-up as indicated
[2020-11-19 00:07] LABS: Cancer Antigen 125 5.5 U/mL (0.0-30.1)
--- NOTE | 2020-11-19 09:20 | MM ---
Reason for exam: screening (asymptomatic). Last mammogram was performed 2 years and 7 months ago. History: Patient is postmenopausal and history of other cancer. Family history of breast cancer in aunt at age 64 and breast cancer in sister at age 56. Physical Findings: A clinical breast exam by your physician is recommended on an annual basis and results should be correlated with mammographic findings. MG 3D Screening Mammo W/Cad Bilateral CC and MLO view(s) were taken. Prior study comparison: April 16, 2018, bilateral MG 3d screening mammo w/cad. The breast tissue is heterogeneously dense. This may lower the sensitivity of mammography. ASSESSMENT: Negative, BI-RAD 1 RECOMMENDATION: Routine screening mammogram of both breasts in 1 year.
== END | disposition home or self-care (01) ==
LOC: RADMAMWWP 07:00
PROVIDERS: ATTEND Internal Medicine
DX: Z12.31 Encounter for screening mammogram for malignant neoplasm of breast (principal); J98.09 Other diseases of bronchus, not elsewhere classified; Z78.0 Asymptomatic menopausal state; Z85.9 Personal history of malignant neoplasm, unspecified; Z80.3 Family history of malignant neoplasm of breast
CPT/HCPCS: 71046; 77063; 77067; 80053; 84443; 85025; 86304

== ENCOUNTER → 2020-11-20 | Outpatient (CLI) | payer MEDICAID ==
--- NOTE | 2020-11-21 14:18 | US ---
EXAMINATION TYPE: US pelvic complete DATE OF EXAM: 11/20/2020 COMPARISON: US 2019 CLINICAL HISTORY: R10.2 Pelvis and perineal pain. Left pelvic pain, post menopausal, 4, para 2, history of partial hysterectomy 20 years ago TECHNIQUE: . Transabdominal sonographic images of the pelvis were acquired. Date of LMP: 20 years ago EXAM MEASUREMENTS: Right Ovary: 2.3 x 1.2 x 1.7 cm Left Ovary: 1.7 x 0.9 x 1.3 cm 1. Uterus: surgically absent . The cervical residual from a partial hysterectomy is not clearly iden tified. 2. Endometrium: surgically absent 3. Right Ovary: wnl 4. Left Ovary: wnl 5. Bilateral Adnexa: wnl 6. Posterior cul-de-sac: wnl IMPRESSION: 1. Normal postsurgical pelvic ultrasound
== END | disposition home or self-care (01) ==
LOC: RADUSWWP 15:24
PROVIDERS: ATTEND Internal Medicine
DX: R10.2 Pelvic and perineal pain (principal); Z78.0 Asymptomatic menopausal state
CPT/HCPCS: 76856

== ENCOUNTER → 2020-12-29 | Outpatient (CLI) | payer MEDICAID ==
[2020-12-29 11:17] LABS: Basophils # (A) 0.09 X 10*3/uL (0.00-0.10); Basophils % (A) 1.5 %; Eosinophils # (A) 0.19 X 10*3/uL (0.04-0.35); Eosinophils % (A) 3.1 %; HCT 36.7 % (37.2-46.3); HGB 11.3 g/dL (12.0-15.0); Lymphocytes # (A) 1.58 X 10*3/uL (0.90-5.00); Lymphocytes % (A) 25.9 %; MCH 28.4 pg (27.0-32.0); MCHC 30.8 g/dL (32.0-37.0); MCV 92.2 fL (80.0-97.0); Monocytes % (A) 8.2 %; Neutrophils # (A) 3.72 X 10*3/uL (1.80-7.70); Platelet Count 285 X 10*3/uL (140-440); RBC 3.98 X 10*6/uL (4.10-5.20); RDW 14.5 % (11.5-14.5)
[2020-12-29 15:14] LABS: ALT 13 U/L (8-44); AST 19 U/L (13-35)
== END | disposition home or self-care (01) ==
LOC: LABWHC1 07:02
PROVIDERS: ATTEND Dermatology Dermatopathology
DX: L13.0 Dermatitis herpetiformis (principal); Z79.899 Other long term (current) drug therapy
CPT/HCPCS: 36415; 83050; 84450; 84460; 85025

== ENCOUNTER 2021-04-23 06:17 | Day surgery (SDC) | payer MEDICAID ==
[2021-04-20 15:05] VITALS: BMI 24.3
[2021-04-23] MEDS ORDERED: LACTATED RINGERS 1,000 ML IV SCH (06:39)
[2021-04-23] MEDS ORDERED: ONDANSETRON 4 MG/2 ML VIAL ONE (06:54)
[2021-04-23] MEDS ORDERED: LIDOCAINE 1% (10MG/ML) FOR IV START INTRADERMA ONE (06:56)
[2021-04-23] MEDS ORDERED: ONDANSETRON 4 MG/2 ML VIAL IVP ONE (06:56)
[2021-04-23 07:02] VITALS: TEMP 98.1
[2021-04-23] MEDS ORDERED: PROPOFOL 10 MG/ML 20 ML VIAL IV ONE (07:07)
--- NOTE | 2021-04-23 07:26 | P.PCN ---
Date of Procedure: 04/23/21 Procedure(s) Performed: BRIEF HISTORY: Patient is a 60-year-old pleasant white female scheduled for an elective colonoscopy as a part of evaluation of prior history of colon polyps and chronic diarrhea with progressive weight loss of 50 pounds in the last 1 year duration. PROCEDURE PERFORMED: Colonoscopy random biopsies. PREOPERATIVE DIAGNOSIS: History of colon polyps and chronic diarrhea. IV sedation per Anesthesia. PROCEDURE: After informed consent was obtained, the patient, was brought into [facility] endoscopy unit. IV sedation was administered by Anesthesia under continuous monitoring. Digital rectal examination was normal. Initially the Olympus CF-160 flexible video colonoscope was then inserted in the rectum, gradually advanced into the cecum without any difficulty. Careful examination was performed as the scope was gradually being withdrawn. Ileocecal valve and the appendiceal orifice were visualized and appeared normal. Prep was excellent. Terminal ileum was intubated and 15 cm visualized and appeared normal Mucosa of the cecum, ascending colon, transverse colon, descending colon, sigmoid colon, and rectum appeared normal. In the biopsies were done from ascending and descending colon to rule out microscopic/collagenous colitis. Retroflexion was performed in the rectum and no lesions were seen. The patient tolerated the procedure well. IMPRESSION: Normal-appearing colon from rectum to cecum with no evidence of colitis or colorectal neoplasia . RECOMMENDATIONS: Findings of this examination were discussed with the patient as well as her family. She was advised to follow with the biopsy results. She can have a repeat surveillance colonoscopy in 5 years..
[2021-04-23 07:52] VITALS: BP 136/85; PULSE 70; RESP 16
== END 2021-04-23 08:18 | disposition home or self-care (01) ==
LOC: ORWHC2ENDO 06:17
PROVIDERS: ATTEND Internal Medicine Gastroenterology
DX: K52.9 Noninfective gastroenteritis and colitis, unspecified (principal); Z87.891 Personal history of nicotine dependence; K21.9 Gastro-esophageal reflux disease without esophagitis; Z79.899 Other long term (current) drug therapy; Z88.0 Allergy status to penicillin; Z88.8 Allergy status to other drugs, medicaments and biological substances; Z86.010 Personal history of colon polyps
CPT/HCPCS: 88305; 45380; J2405; J2704

== ENCOUNTER → 2021-05-17 | Outpatient (CLI) | payer MEDICAID ==
[2021-05-17 14:22] LABS: Basophils % (A) 1.6 %; Eosinophils # (A) 0.15 X 10*3/uL (0.04-0.35); Eosinophils % (A) 2.4 %; HCT 40.6 % (37.2-46.3); HGB 12.2 g/dL (12.0-15.0); Lymphocytes # (A) 1.54 X 10*3/uL (0.90-5.00); Lymphocytes % (A) 24.4 %; MCH 28.6 pg (27.0-32.0); MCV 95.1 fL (80.0-97.0); Mean Platelet Volume 11.3 fL (9.5-12.2); Monocytes # (A) 0.46 X 10*3/uL (0.20-1.00); Monocytes % (A) 7.3 %; Neutrophils # (A) 4.05 X 10*3/uL (1.80-7.70); Neutrophils % (A) 64.1 %; Platelet Count 271 X 10*3/uL (140-440); RBC 4.27 X 10*6/uL (4.10-5.20); RDW 12.7 % (11.5-14.5); WBC 6.31 X 10*3/uL (4.50-10.00)
[2021-05-17 15:28] LABS: ALT 13 U/L (8-44); AST 17 U/L (13-35); African American GFR (CKD) 91.9 (60.0-200.0); Albumin 4.6 g/dL (3.8-4.9); Albumin/Globulin Ratio 1.92 (1.60-3.17); Alkaline Phosphatase 81 U/L (41-126); BUN/Creat Ratio 16.79 Ratio (12.00-20.00); Blood Urea Nitrogen 13.4 mg/dL (9.0-27.0); Carbon Dioxide 18.2 mmol/L (20.0-27.5); Chloride 105 mmol/L (96-109); Erythrocyte Sedimentation Rate 8 mm/Hr (0-30); Globulin 2.4 g/dL (1.6-3.3); Glucose 83 mg/dL (70-110); Non-African American GFR(CKD) 79.3 (60.0-200.0); Potassium 4.2 mmol/L (3.5-5.5); Sodium 138 mmol/L (135-145); Total Protein 6.9 g/dL (6.2-8.2)
[2021-05-17 15:42] LABS: C Reactive Protein <0.30 mg/dL (0.00-0.80)
== END | disposition home or self-care (01) ==
LOC: LABWHC1 07:57
PROVIDERS: ATTEND Internal Medicine Gastroenterology
DX: K52.9 Noninfective gastroenteritis and colitis, unspecified (principal)
CPT/HCPCS: 36415; 80053; 85025; 85652; 86140

== ENCOUNTER → 2021-12-23 | Outpatient (CLI) | payer BC ==
[2021-12-23 14:29] LABS: Basophils # (A) 0.08 X 10*3/uL (0.00-0.10); Basophils % (A) 1.2 %; Eosinophils # (A) 0.11 X 10*3/uL (0.04-0.35); Eosinophils % (A) 1.6 %; HCT 37.2 % (37.2-46.3); HGB 11.8 g/dL (12.0-15.0); Immature Grans, Automated 0.3 %; Lymphocytes # (A) 1.65 X 10*3/uL (0.90-5.00); Lymphocytes % (A) 23.7 %; MCH 28.2 pg (27.0-32.0); MCHC 31.7 g/dL (32.0-37.0); Mean Platelet Volume 11.4 fL (9.5-12.2); Monocytes # (A) 0.51 X 10*3/uL (0.20-1.00); Monocytes % (A) 7.3 %; NRBC Per 100 WBC 0 /100 WBCS (0.0-0.0); Neutrophils # (A) 4.58 X 10*3/uL (1.80-7.70); Neutrophils % (A) 65.9 %; Platelet Count 239 X 10*3/uL (140-440); RBC 4.18 X 10*6/uL (4.10-5.20); RDW 13.5 % (11.5-14.5); WBC 6.95 X 10*3/uL (4.50-10.00)
[2021-12-23 14:41] LABS: ALT 12 U/L (8-44); AST 17 U/L (13-35)
== END | disposition home or self-care (01) ==
LOC: LABWHC1 10:25
PROVIDERS: ATTEND Dermatology Dermatopathology
DX: Z08 Encounter for follow-up examination after completed treatment for malignant neoplasm (principal); L13.0 Dermatitis herpetiformis; L72.0 Epidermal cyst; L82.0 Inflamed seborrheic keratosis; L29.8 Other pruritus; L53.8 Other specified erythematous conditions; R58 Hemorrhage, not elsewhere classified; R20.8 Other disturbances of skin sensation; Z85.828 Personal history of other malignant neoplasm of skin
CPT/HCPCS: 36415; 83050; 84450; 84460; 85025